=== PATIENT | female | born 1985 | race Caucasian/White ===

== ENCOUNTER 2020-10-28 17:30 | Emergency (ER) | payer MEDICAID, OTHER ==
[~2020-10-28] VITALS: Ht 165.1 cm; Wt 183.3 kg
[2020-10-28 21:34] VITALS: BP 142/90
== END 2020-10-28 21:36 | disposition home or self-care (01) ==
LOC: M ED 17:30
DX: F33.1 Major depressive disorder, recurrent, moderate (principal); J45.909 Unspecified asthma, uncomplicated